=== PATIENT | male | born 1950 | race Caucasian/White ===

== ENCOUNTER → 2019-10-15 14:46 | Outpatient (NON) | payer MEDICARE, OTHER, SELFPAY ==
[2019-10-15 16:51] LABS: Blood Urea Nitrogen 15 mg/dL (9-20); Calcium 8.5 mg/dL (8.4-10.2); Carbon Dioxide 27 mmol/L (22-30); Chloride 99 mmol/L (98-107); Estimated Glomerular Filt Rate > 60; Glucose 84 mg/dL (75-110); Potassium 4.4 mmol/L (3.4-5.0); Sodium 135 mmol/L (137-145)
[2019-10-15 17:00] LABS: Hematocrit 29.2 % (42.0-52.0); Hemoglobin 9.5 g/dL (14.0-18.0); Mean Corpuscular HGB Conc 32.5 g/dl (32-36); Mean Corpuscular Hemoglobin 32.2 pg (26-34); Mean Platelet Volume 9.1 fl (7.4-10.4); Platelet Count Result 189 k/mm3 (150-375); Red Blood Count 2.95 M/mm3 (4.6-6.20); Red Cell Distribution Width 19.3 % (11.5-14.5); White Blood Count 4.2 K/mm3 (4.5-10.0)
== END ==
PROVIDERS: Visit Provider Thoracic Surgery (Cardiothoracic Vascular Surgery)
DX: Z48.812 Encounter for surgical aftercare following surgery on the circulatory system (principal); Z95.1 Presence of aortocoronary bypass graft; Z95.2 Presence of prosthetic heart valve; I10 Essential (primary) hypertension
CPT/HCPCS: 80048; 85027

== ENCOUNTER 2019-10-16 10:50 | Outpatient (CLI) | payer MEDICARE, OTHER, SELFPAY ==
--- NOTE | ~2019-10-16 | XR_ITS ---
XR chest 2V 10/16/2019 11:22 Indication: Follow-up heart surgery. Procedure: PA and lateral views of the chest Comparison: 01/09/2019 Findings: Status post median sternotomy for CABG. Port catheter tip in SVC. Right basilar infiltrates . Small pleural effusions. No edema or pneumothorax. No acute osseous abnormality. The lungs are hype rinflated which is consistent with, but not diagnostic of chronic obstructive pulmonary disease. Impression: 1: Right basilar infiltrates, most likely atelectasis. 2: Small pleural effusions. Reviewed, dictated and finalized at location A. Impression: 1: Right basilar infiltrates, most likely atelectasis. 2: Small pleural effusions.
== END 2019-10-16 10:51 | disposition home or self-care (01) ==
DX: I25.10 Atherosclerotic heart disease of native coronary artery without angina pectoris (principal); I42.9 Cardiomyopathy, unspecified; Z98.890 Other specified postprocedural states; J90 Pleural effusion, not elsewhere classified; R91.8 Other nonspecific abnormal finding of lung field
CPT/HCPCS: 71046

== ENCOUNTER 2020-06-15 10:39 | Emergency (ER) | payer MEDICARE, OTHER, SELFPAY ==
--- NOTE | ~2020-06-15 | XR_ITS ---
EXAMINATION: XR chest 2V DATE: 06/15/2020 11:15 INDICATION: Cough. TECHNIQUE: Frontal and lateral views of the chest were obtained. COMPARISON: Chest 2 views 10/16/2019, PET/CT 06/12/2019 FINDINGS: There is mild atelectasis at right lung base. No pleural effusion or pneumothorax. The hear t size is normal. There are changes of mitral valve replacement. There is a right internal jugular po rt with tip in superior vena cava. IMPRESSION: 1. Mild atelectasis at right lung base. Reviewed, dictated and finalized at location A. [facility]
[2020-06-15 10:50] VITALS: BP 113/82; PULSE 103; RESP 20; TEMP 37.2; O2SAT 98
--- NOTE | 2020-06-15 11:08 | ED.GENADULT ---
HPI - General Adult General Chief complaint: Upper Respiratory Infection Stated complaint: dizzy/cough Source: patient Mode of arrival: ambulatory Limitations: no limitations History of Present Illness HPI narrative: Patient presents for evaluation of respiratory symptoms and headache since early Tuesday. He states he has had a persistent occipital headache that is throbbing, rated 5 out of 10 in severity. He indicates the pain is worse when he bends over at the waist. Pain started slowly and denies thunderclap component. He indicates he has had a cough for the same duration of time, mostly dry but occasionally with some clear sputum. He states that he feels warm . No objective fever. No chills, nausea, vomiting, otalgia, sore throat. 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 He currently lives with his . He has a history of lymphoma, previously undergoing chemotherapy and radiation. He is currently in remission. He states as a result of chemotherapy he developed some cardiac issues. In September of this year he underwent open heart surgery with several valve replacements and bypass as well. He indicates on a PET scan there was question of a cerebral aneurysm. He underwent angiography at [facility] 2 days ago but has not received his results yet. He has taken aspirin to assist with his headache. He denies any chest pain but he has some chronic shortness of breath. Related Data Home Medications Medication Instructions Recorded Confirmed allopurinol 150 mg PO DAILY 05/29/19 06/15/20 aspirin [Aspir-81] 81 mg PO DAILY 05/29/19 06/15/20 multivitamin 1 tablet PO DAILY 05/29/19 06/15/20 omeprazole 20 mg PO DAILY 05/29/19 06/15/20 pentosan polysulfate sodium 100 mg PO DAILY 05/29/19 06/15/20 [Elmiron] furosemide [Lasix] 20 mg PO DAILY 08/28/19 06/15/20 metoprolol succinate 12.5 mg PO DAILY 08/28/19 06/15/20 simvastatin [Zocor] 20 mg PO HS 08/28/19 06/15/20 tamsulosin [Flomax] 0.4 mg PO HS 08/28/19 06/15/20 Allergies Allergy/AdvReac Type Severity Reaction Status Date / Time iodine Allergy Unknown Verified 11/16/18 11:30 Contrast Media Allergy Intermediate HOT,SWEATING, Uncoded 02/15/19 09:45 SKIN DISCOLORATION Review of Systems Review of Systems: Narrative: CONSTITUTIONAL: Denies fever, chills, or sweats. Reports feeling warm. EYES: Denies visual changes, redness, or discharge. ENT: Denies rhinorrhea, congestion, sore throat, or otalgia. CARDIOVASCULAR: Denies chest pain, palpitations, or edema. RESPIRATORY: Reports cough and chronic shortness of breath GASTROINTESTINAL: Denies abdominal pain, nausea, vomiting, or diarrhea. GENITOURINARY: Denies dysuria or hematuria. SKIN: Denies rash or itching. MUSCULOSKELETAL: Denies back pain, joint pain, or myalgia. NEUROLOGIC: Reports headache. Denies numbness, dizziness, or weakness. PSYCHIATRIC: Denies anxiety or depression. [facility] Past Medical History Medical History BPH (benign prostatic hyperplasia) Cardiomyopathy CHF (congestive heart failure) GERD (gastroesophageal reflux disease) HTN (hypertension) Lymphoma Surgical History Surgical History H/O arthroscopic knee surgery History of heart bypass surgery Family History Family History Father Family history of Alzheimer's disease Family history of dementia Esophageal cancer Mother Family history of renal failure Social History Social History Smoking status: Never smoker Alcohol intake: current Alcohol use details: 4 beers per day Substance use: never Living arrangements: with family Gender identity (if verbalized by the patient): Male Sexual Orientation (if Verbalized by the Patient):
== END 2020-06-15 12:01 | disposition home or self-care (01) ==
PROVIDERS: Emergency Provider Nurse Practitioner
DX: B34.9 Viral infection, unspecified (principal); N40.0 Benign prostatic hyperplasia without lower urinary tract symptoms; I11.0 Hypertensive heart disease with heart failure; I50.9 Heart failure, unspecified; K21.9 Gastro-esophageal reflux disease without esophagitis; I42.9 Cardiomyopathy, unspecified; Z85.72 Personal history of non-Hodgkin lymphomas; Z95.1 Presence of aortocoronary bypass graft; Z79.82 Long term (current) use of aspirin; Z95.2 Presence of prosthetic heart valve
CPT/HCPCS: 71046; 87804; 99213; G0463